=== PATIENT | female | born 1970 | race Caucasian/White ===

== ENCOUNTER 2017-09-06 12:50 | Emergency (ER) | payer OTHER ==
[~2017-09-06] VITALS: Ht 157.5 cm; Wt 63.5 kg
[~2017-09-06 12:50] MED LIST: BENTYL10 MG PO; FISHOIL; GLUCOPHAGE500 MG; HYDROCHLOROTH12.5 MG PO; IBUPROFEN 800800 MG PO; LISINOPRIL10 MG PO; LISINOPRIL20 MG; MAXZIDE 75-501 EACH PO; NORCO 5-325 TA1 EACH PO; PANTOPRAZOLE; PRILOSEC40 MG; ROBAXIN500 MG PO; STOOL SOFTENER50 MG; TOPROL XL100 MG PO; TRAMADOL 50 MG50 MG PO; TRILIPIX135 MG; VITAMIN D 5050000 I1; VITCB500GO PO; ZANTAC 150MG T150 MG; ZOFRAN ODT4 MG PO; ZOFRAN4 MG PO
[2017-09-06] MEDS ORDERED: ZESTORETIC 10-1 EACH PO (13:03)
[2017-09-06 14:04] LABS: ABSOLUTE BASOPHILS 0.1 thou/uL (0.0-0.2); ABSOLUTE EOSINOPHILS 0.1 thou/uL (0.0-0.7); ABSOLUTE LYMPHOCYTES 1.8 thou/uL (0.8-5.3); ABSOLUTE MONOCYTES 0.4 thou/uL (0.0-1.2); ABSOLUTE NEUTROPHILS 5.5 thou/uL (1.6-8.1); BASOPHILS 0.9 %; HEMATOCRIT 39.4 % (37.0-47.0); HEMOGLOBIN 13.4 gm/dL (12.0-15.0); MCH 29.7 pg (26.0-34.0); MCV 87.4 fL (80.0-100.0); MONOCYTES 5.2 %; NUCLEATED RBCS 0 /100WBC; PLATELET COUNT* 254 thou/uL (150-400); POLYS 69.9 %; RBC 4.51 mil/uL (4.20-5.00); RDW-CV 12.7 % (10.5-14.5); WBC 7.8 thou/uL (4.0-11.0)
[2017-09-06 14:10] LABS: ANION GAP 9 mmol/L (7-16); BUN 7 mg/dL (7-18); CALCIUM 9.1 mg/dL (8.5-10.1); CHLORIDE 104 mmol/L (98-107); CO2 26 mmol/L (21-32); CREATININE 0.8 mg/dL (0.6-1.3); GLUCOSE 91 mg/dL (70-99); POTASSIUM 3.8 mmol/L (3.5-5.1); SODIUM 139 mmol/L (136-145)
[2017-09-06 14:17] LABS: ALBUMIN 3.9 g/dL (3.4-5.0); ALKALINE PHOSPHATASE 67 U/L (46-116); SGOT 18 U/L (15-37); SGPT 30 U/L (30-65); TOTAL BILIRUBIN 0.3 mg/dL (<0.1-1.0); TOTAL PROTEIN 7.5 g/dL (6.4-8.2); TROPONIN-I LEVEL <0.06 ng/mL (<0.06)
[2017-09-06] MEDS ORDERED: BUTALB-APAP-CA1 EACH PO (15:28)
[2017-09-06] MEDS ORDERED: ZOFRAN ODT4 MG PO (15:28)
[2017-09-06 15:39] VITALS: BP 132/81
== END 2017-09-06 15:41 | disposition home or self-care (01) ==
LOC: M.ERS 12:50
PROVIDERS: Nurse Practitioner Family
DX: R51 Headache (principal); R11.2 Nausea with vomiting, unspecified